=== PATIENT | female | born 1980 | race Caucasian/White ===

== ENCOUNTER 2021-11-22 22:46 | Emergency (ER) | payer MEDICAID ==
[~2021-11-22] VITALS: Ht 162.6 cm; Wt 69.4 kg
--- NOTE | 2021-11-22 23:00 | NUR ---
BIBS FOR C/O BLURRED VISION, FRONTAL H/A AND NAUSEA X 2-3 DAYS. PT AWAKE AND ALERT X4 BREATHING EVEN AND UNLABORED. ALL V/S WNL.
[2021-11-22] MEDS ORDERED: CT SWABBABLE VALVE TRANS SET 1 EA INFUS.SET MC ONE (23:08)
[2021-11-22] MEDS ORDERED: IOHEXOL-350 100 ML VIAL IV ONE (23:08)
[2021-11-22] MEDS ORDERED: IV NS 0.9% 250 ML IV ONE (23:08)
--- NOTE | 2021-11-22 23:15 | NUR ---
18G RAC BLOOD DRAWN AND SENT TO LAB
[2021-11-22 23:38] LABS: BASOPHILS # (AUTO) 0.1 K/uL (0.0-0.2); BASOPHILS % (AUTO) 0.6 % (0.0-2.0); EOSINOPHILS % (AUTO) 5.5 % (0.0-6.0); HEMATOCRIT 40 % (33-45); HEMOGLOBIN 13.9 g/dL (11.5-14.8); LYMPHOCYTES # (AUTO) 2.3 K/uL (0.8-4.8); LYMPHOCYTES % (AUTO) 26.5 % (20.0-44.0); MEAN CORPUSCULAR HGB CONC 35 g/dl (31.0-36.0); MEAN CORPUSCULAR VOLUME 92 fL (82-100); MONOCYTES # (AUTO) 0.6 K/uL (0.1-1.30); MONOCYTES % (AUTO) 7.2 % (2.0-12.0); NEUTROPHILS # (AUTO) 5.1 K/uL (1.8-8.9); NEUTROPHILS % (AUTO) 60.2 % (43.0-81.0); PLATELET COUNT (AUTO) 226 K/uL (150-450); RED BLOOD CELL COUNT(AUTO) 4.36 MIL/uL (4.0-5.2); WHITE BLOOD COUNT (AUTO) 8.5 K/uL (4.3-11.0)
[2021-11-22 23:45] LABS: CARBON DIOXIDE 28 mmol/L (21-32); CHLORIDE 103 mmol/L (98-107); CREATININE 0.6 mg/dL (0.6-1.3); GLUCOSE 98 mg/dL (74-106); POTASSIUM 4.1 mmol/L (3.5-5.1); SODIUM SERUM 139 mmol/L (136-145); UREA NITROGEN, BLOOD 14 mg/dL (7-18)
--- NOTE | 2021-11-23 | NUR ---
INSPECTOR TOOL AT BEDSIDE
--- NOTE | 2021-11-23 00:08 | NUR ---
COVID SWAB COLLECTED AND SENT TO LAB
--- NOTE | 2021-11-23 00:30 | NUR ---
DR DEVINE AT BED SIDE DISCUSSING ADMISSION. PT IS WILLING TO LEAVE AMA. EXPLAINED THE RISKS VS. BENEFITS OF LEAVING AMA.
--- NOTE | 2021-11-23 00:58 | NUR ---
Patient does not wish to proceed with medical care recommended by Dr. DEVINE. Patient given information related to possible complications, up to and including , which could occur as a result of leaving the hospital at this time. Patient verbalizes understanding of risks involved due to leaving against medical advice. Patient has signed AMA form.IV removed. Catheter intact and site benign. Pressure and 4x4 applied to site. No bleeding noted.
[2021-11-23 02:20] VITALS: BP 127/69
== END 2021-11-23 01:00 | disposition left against medical advice (07) ==
LOC: ER 22:46
DX: H53.9 Unspecified visual disturbance (principal); R51.9 Headache, unspecified; Z20.822 Contact with and (suspected) exposure to COVID-19; Z53.29 Procedure and treatment not carried out because of patient's decision for other reasons; R94.31 Abnormal electrocardiogram [ECG] [EKG]; Z86.718 Personal history of other venous thrombosis and embolism
CPT/HCPCS: 99285; 70498; 93970; 71045; 93005; 70496; 85025; 80048; 36415; 84484; 85730; 82962; 87426; 70450; J7050; Q9967; C9803